=== PATIENT | male | born 1975 | race Caucasian/White ===

== ENCOUNTER 2019-12-19 09:39 | Emergency (ER) | payer OTHER, SELFPAY ==
--- NOTE | ~2019-12-19 | CT_ITS ---
EXAMINATION: CT abdomen pelvis w con DATE: 12/19/2019 10:33 INDICATION: Abdominal pain TECHNIQUE: Computed tomography (CT) of the abdomen and pelvis was performed . with 100 mL Omnipaque-3 50 intravenous contrast. Automated exposure control and iterative reconstruction technique were emplo yed. The dose-length product was 390.80 mGy-cm. COMPARISON: None FINDINGS: Mild dependent atelectasis in the bilateral lower lobes. Heart size is normal. No pericardial or pleu ral effusion. Liver, gallbladder, spleen, pancreas and bilateral adrenal glands are normal. Small charanjit unt of gas and fluid within a duodenal diverticulum arising from the second portion of the duodenum. There are regions of cortical scarring at the upper poles of both the left and right kidneys. There a re few scattered colonic diverticula predominantly along the descending and sigmoid colon. There is w all thickening and inflammatory stranding along short segment of the proximal sigmoid colon consisten t with diverticulitis. Small bowel and appendix are normal. No abscess or free intraperitoneal gas. B ladder and prostate are normal. No pathologically enlarged abdominal or pelvic lymphadenopathy. Mild bilateral hip osteoarthritis. IMPRESSION: 1. Radiographically uncomplicated sigmoid diverticulitis. Reviewed, dictated and finalized at location A.
--- NOTE | 2019-12-19 09:53 | ED_ITS ---
HPI - Abdominal Pain General Chief Complaint: Abdominal Pain Stated Complaint: abd pain Time Seen by Provider: 12/19/19 09:48 Source: RN notes reviewed History of Present Illness HPI narrative: Patient presents emergency department from home for abdominal pain. Patient states the pain began approximate 11 PM last night. Pain is located in left lower quadrant does not radiate. Described as sharp and stabbing. Denies any fevers or chills nausea vomiting diarrhea or any other symptoms. States he is taken no previous pain medication Related Data Allergies Allergy/AdvReac Type Severity Reaction Status Date / Time No Known Allergies Allergy Verified 12/19/19 09:44 Review of Systems Review of Systems: Narrative: Gen.: Denies fevers or chills ENT: Denies congestion Respiratory: Denies shortness of breath or cough CV: Denies chest pain or palpitations GI: See HPI a denies burning, urgency, frequency or hematuria Musculoskeletal: Denies back pain or muscle pain Neuro: Denies numbness, tingling, weakness or focal weakness Skin: Denies rash Except as documented, all other systems reviewed and negative [facility] Past Medical History Medical History (Updated 12/19/19 @ 09:53 by Nirav Oropeza DO) Patient denies significant medical history Social History Social History (Updated 12/19/19 @ 09:54 by Nirav Oropeza DO) Smoking packs per day: 1 Smoking cigarettes per day: 20.0
--- NOTE | 2019-12-19 09:54 | ED.ABDPAIN ---
HPI - Abdominal Pain General Chief Complaint: Abdominal Pain Stated Complaint: abd pain Time Seen by Provider: 12/19/19 09:48 Source: RN notes reviewed History of Present Illness HPI narrative: Patient presents emerged department from home for abdominal pain. Pain began last night is located left lower quadrant. Pain is described as sharp and stabbing does not radiate denies any fevers chills nausea vomiting diarrhea or any other symptoms states he is taken no previous pain medication Related Data Allergies Allergy/AdvReac Type Severity Reaction Status Date / Time No Known Allergies Allergy Verified 12/19/19 09:44 Review of Systems Review of Systems: Narrative: Gen.: Denies fevers or chills ENT: Denies congestion Respiratory: Denies shortness of breath or cough CV: Denies chest pain or palpitations GI: See HPI denies burning, urgency, frequency or hematuria Musculoskeletal: Denies back pain or muscle pain Neuro: Denies numbness, tingling, weakness or focal weakness Skin: Denies rash Except as documented, all other systems reviewed and negative [facility] Past Medical History Medical History (Updated 12/19/19 @ 11:41 by Nirav Oropeza DO) Patient denies significant medical history Social History Social History (Updated 12/19/19 @ 09:54 by Nirav Oropeza DO) Smoking packs per day: 1 Smoking cigarettes per day: 20.0 Exam Narrative: Exam Narrative: APPEARANCE: No acute distress, nontoxic, resting in bed HEENT: Normocephalic, atraumatic, OMM RESPIRATORY: No respiratory distress, clear to auscultation bilaterally with no rhonchi wheezing or rales CARDIOVASCULAR: RRR s murmur ABDOMINAL: Soft, nondistended, tender palpation left lower quadrant, no tenderness in right lower quadrant, right upper quadrant left upper quadrant, no rebound or guarding MUSCULOSKELETAl: Moves all extremities. No clubbing, cyanosis or edema. NEURO: Awake and alert. Following commands, speech normal, no focal deficits SKIN:: Warm, dry. Normal Color PSYCHIATRIC: Normal affect/mood Course Course Emergency Course: Patient states that they are feeling much better at this time. States abdominal pain has improved. Repeat abdominal exam shows the patient's abdomen to be soft with no surgical abdomen present. Discussed with patient results of workup and diagnosis. Discussed need for follow-up with primary care physician, reasons to return to the emergency department in proper use of medication. Patient understands and agrees to current treatment plan Vital Signs Vital signs: Vital Signs Temperature 98.7 F 12/19/19 09:55 Pulse Rate 64 12/19/19 09:55 Respiratory Rate 16 12/19/19 09:55 Blood Pressure 170/92 H 12/19/19 09:55 Pulse Oximetry 100 12/19/19 09:55 Temperature 98.7 F 12/19/19 09:55 Pulse Rate 64 12/19/19 09:55 Respiratory Rate 16 12/19/19 09:55 Blood Pressure 170/92 H 12/19/19 09:55 Pulse Oximetry 100 12/19/19 09:55 MDM - Abdominal Pain MDM Narrative Medical decision making narrative: Patient's abdomen is soft without significant pain or signs of surgical abdomen on serial exams. Lab and x-ray evaluations are reviewed and patient is felt to be a reasonable candidate for outpatient management. Patient was instructed as to limitations of x-ray and laboratory evaluation and encouraged to return to ED or primary physician for repeat exam in 12 hours if continued or worsening pain Lab Data Result diagrams: 12/19/19 09:55 12/19/19 10:27 Labs: Lab Results 12/19/19 12/19/19 12/19/19 Range/Units 09:55 09:55 09:55 WBC 18.7 H (4.5-10.0) K/mm3 RBC 5.28 (4.6-6.20) M/mm3 Hgb 16.4 (14.0-18.0) g/dL Hct 47.6 (42.0-52.0) % MCV 90.2 (80-100) fl MCH 31.1 (26-34) pg MCHC 34.5 (32-36) g/dl RDW 12.7 (11.5-14.5) % Plt Count 318 (150-375) k/mm3 MPV 8.9 (7.4-10.4) fl Immature Gran % (Auto) 0.4 (0-0.5) % Neut % (Auto) 74.4 H
[2019-12-19 09:55] VITALS: BP 170/92; PULSE 64; RESP 16; TEMP 37.1; O2SAT 100
[2019-12-19 10:03] LABS: Basophils Absolute Auto 0.1 K/mm3 (0.0-0.1); Basophils Percent Auto 0.3 % (0.2-1.2); Eosinophils Absolute Auto 0.2 K/mm3 (0-0.3); Hematocrit 47.6 % (42.0-52.0); Hemoglobin 16.4 g/dL (14.0-18.0); Immature Granulocyte Absolute 0.08 K/mm3 (0.00-0.031); Immature Granulocyte Percent A 0.4 % (0-0.5); Lymphocytes Absolute Auto 3.23 K/mm3 (0.9-3.2); Lymphocytes Percent Auto 17.3 % (18.3-44.2); Mean Corpuscular HGB Conc 34.5 g/dl (32-36); Mean Corpuscular Hemoglobin 31.1 pg (26-34); Mean Corpuscular Volume 90.2 fl (80-100); Mean Platelet Volume 8.9 fl (7.4-10.4); Monocytes Absolute Auto 1.2 K/mm3 (0.1-0.6); Monocytes Percent Auto 6.6 % (2.6-8.5); Neutrophils Absolute Auto 13.9 K/mm3 (1.3-6.7); Neutrophils Percent Auto 74.4 % (45.5-73.1); Platelet Count Result 318 k/mm3 (150-375); Red Blood Count 5.28 M/mm3 (4.6-6.20); Red Cell Distribution Width 12.7 % (11.5-14.5); White Blood Count 18.7 K/mm3 (4.5-10.0)
[2019-12-19] MEDS: SODIUM CHLORIDE 0.9% IV 1,000 ML 999 ML IV CONT (10:03)
[2019-12-19] MEDS: KETOROLAC 30 MG/ML VIAL (*BKC) IV PUSH (10:03)
[2019-12-19 10:05] LABS: Add Urine Microscopic? NO; Appearance Urine Clear (Clear); Bilirubin Urine Negative (Negative); Blood Urine Negative (Negative); Color Urine Yellow (Yellow); Glucose Urine UA Negative (Negative); Ketones Urine Negative (Negative); Leukocyte Esterase Ur Negative LEU/UL (Negative); Nitrate Urine Negative (Negative); Protein Urine Negative (Negative); Specific Grav Ur 1.018 (1.001-1.035); Urobilinogen Urine Negative mg/dL (<2.0)
[2019-12-19 10:19] LABS: Lipase 141 U/L (23-300)
[2019-12-19 10:28] LABS: Alanine Aminotransferase 23 U/L (4-50); Albumin Level 4.5 g/dL (3.5-5.1); Alkaline Phosphatase 104 U/L (38-126); Aspartate Amino Transferase 30 U/L (17-59); Bilirubin,Total 0.6 mg/dL (0.2-1.3); Blood Urea Nitrogen 11 mg/dL (9-20); Calcium 9.2 mg/dL (8.4-10.2); Carbon Dioxide 21 mmol/L (22-30); Chloride 108 mmol/L (98-107); Estimated CRCL calculation 90 ml/min; Estimated Glomerular Filt Rate > 60; Glucose 126 mg/dL (75-110); Potassium 4.2 mmol/L (3.4-5.0); Sodium 135 mmol/L (137-145)
[2019-12-19 10:28] LABS: Estimated CRCL calculation 113 ml/min; Estimated Glomerular Filt Rate > 60
[2019-12-19 11:33] LABS: Lactic Acid Reflex < 0.5 mmol/L (0.7-2.1)
[2019-12-19] MEDS: AMOXICILLIN/CLAVULANATE K 875-125 MG TAB 1 TABLET PO (11:51)
[2019-12-19 11:52] VITALS: BP 144/98; PULSE 71; RESP 16; O2SAT 98
== END 2019-12-19 12:00 | disposition home or self-care (01) ==
PROVIDERS: Emergency Provider Emergency Medicine; PCP Internal Medicine Gastroenterology
DX: K57.32 Diverticulitis of large intestine without perforation or abscess without bleeding (principal); F17.210 Nicotine dependence, cigarettes, uncomplicated
CPT/HCPCS: 36415; 74177; 80053; 81003; 83605; 83690; 85025; 96361; 96374; 99284; A9270; J1885; J7030; Q9967

== ENCOUNTER 2020-01-04 09:19 | Emergency (ER) | payer OTHER, SELFPAY ==
[2020-01-04] VITALS (36 sets, daily range): BP systolic 134–171; BP diastolic 91–106; PULSE 77; RESP 18; TEMP 36.4; O2SAT 96–100
--- NOTE | ~2020-01-04 | CT_ITS ---
EXAMINATION: CT abdomen pelvis w con EXAM DATE: 01/04/2020 11:30 INDICATION: Rectal pain. Hematochezia. TECHNIQUE: Spiral CT of the abdomen and pelvis was performed following intravenous injection of 100 m L Omnipaque 350. Axial, coronal and sagittal images were reviewed. The dose-length product (DLP) fo r this examination was 478.81 mGy-cm. The exposure was tailored according to patient size (auto mA e xposure control), and iterative reconstruction (ASIR) was used as additional dose reduction technique . Comparison is made to prior examination from 12/19/2019. FINDINGS: The liver, spleen, adrenal glands and pancreas are unremarkable. Gallbladder is unremarkab le. No biliary obstruction. Portal and splenic veins are patent. Kidneys enhance symmetrically. T here is no hydronephrosis. Small regions of bilateral renal cortical scarring. The prostate is unrem arkable. The bladder is unremarkable. There is no retroperitoneal or pelvic lymphadenopathy. Ther e is mild scattered arteriosclerotic disease. The appendix is normal. The stomach and small bowel are unremarkable. Mild diffuse sigmoid wall thi ckening, could be edema, mild colitis. Previous exam had acute diverticulitis at the descending/sigm oid colonic junction which has essentially resolved. No free intraperitoneal gas. The heart is nor mal in size. There are no pericardial or pleural effusions. The lung bases are unremarkable. The b ones are unremarkable. IMPRESSION: 1. Suspect mild sigmoid colonic wall thickening, edema, could be mild colitis. 2. Essentially resolved recent episode of acute diverticulitis. Reviewed, dictated and finalized at location B.
[2020-01-04] MEDS: SODIUM CHLORIDE 0.9% IV 1,000 ML 999 ML IV CONT (10:30)
[2020-01-04 10:39] LABS: Basophils Absolute Auto 0.1 K/mm3 (0.0-0.1); Basophils Percent Auto 0.7 % (0.2-1.2); Eosinophils Absolute Auto 0.3 K/mm3 (0-0.3); Hemoglobin 16.1 g/dL (14.0-18.0); Immature Granulocyte Absolute 0.08 K/mm3 (0.00-0.031); Immature Granulocyte Percent A 0.6 % (0-0.5); Lymphocytes Percent Auto 28.3 % (18.3-44.2); Mean Corpuscular HGB Conc 34.3 g/dl (32-36); Mean Corpuscular Hemoglobin 31.1 pg (26-34); Mean Corpuscular Volume 90.9 fl (80-100); Mean Platelet Volume 8.8 fl (7.4-10.4); Neutrophils Absolute Auto 7.7 K/mm3 (1.3-6.7); Neutrophils Percent Auto 60.4 % (45.5-73.1); Platelet Count Result 361 k/mm3 (150-375); Red Blood Count 5.17 M/mm3 (4.6-6.20); Red Cell Distribution Width 12.8 % (11.5-14.5); White Blood Count 12.7 K/mm3 (4.5-10.0)
[2020-01-04 10:49] LABS: Alanine Aminotransferase 38 U/L (4-50); Albumin Level 4.3 g/dL (3.5-5.1); Alkaline Phosphatase 102 U/L (38-126); Aspartate Amino Transferase 30 U/L (17-59); Bilirubin,Total 0.3 mg/dL (0.2-1.3); Blood Urea Nitrogen 11 mg/dL (9-20); Calcium 9.1 mg/dL (8.4-10.2); Carbon Dioxide 25 mmol/L (22-30); Chloride 106 mmol/L (98-107); Estimated CRCL calculation 93 ml/min; Estimated Glomerular Filt Rate > 60; Glucose 102 mg/dL (75-110); Lipase 172 U/L (23-300); Potassium 4.4 mmol/L (3.4-5.0); Sodium 136 mmol/L (137-145)
[2020-01-04 10:57] LABS: Add Urine Microscopic? NO; Appearance Urine Clear (Clear); Bilirubin Urine Negative (Negative); Blood Urine Negative (Negative); Color Urine Colorless (Yellow); Glucose Urine UA Negative (Negative); Ketones Urine Negative (Negative); Leukocyte Esterase Ur Negative LEU/UL (Negative); Nitrate Urine Negative (Negative); Protein Urine Negative (Negative); Specific Grav Ur 1.009 (1.001-1.035); Urobilinogen Urine Negative mg/dL (<2.0)
--- NOTE | 2020-01-04 12:15 | ED.GENADULT ---
HPI - General Adult General Chief complaint: GI Bleed Stated complaint: Blood in stool Time Seen by Provider: 01/04/20 09:25 Source: patient Mode of arrival: ambulatory Limitations: no limitations History of Present Illness HPI narrative: Patient is a 44-year-old male who presents to emergency department for evaluation of rectal bleeding for the last 3 days noting bright red blood with pain of the rectum with bowel movements. Patient just finished his medications for diverticulitis today. Patient has been followed by gastroenterology and is scheduled for colonoscopy. Patient denies any fever chills nausea vomiting. Patient denies anticoagulant use. Patient presents per private vehicle in no distress Related Data Allergies Allergy/AdvReac Type Severity Reaction Status Date / Time No Known Allergies Allergy Verified 12/25/19 11:03 Review of Systems Review of Systems: All systems reviewed & are unremarkable except as noted in HPI and below PMFSH Past Medical History Medical History Lower abdominal pain Patient denies significant medical history Social History Social History Smoking packs per day: 1 Smoking cigarettes per day: 20.0 Gender identity (if verbalized by the patient): Male Exam Narrative: Exam Narrative: GENERAL: Well-appearing, well-nourished, and in no acute distress. HEAD: Normocephalic, atraumatic. EYES: PERRLA and EOMI. ENT: Nares clear, no rhinorrhea or epistaxis. Mucous membranes moist. CHEST: Clear to auscultation. No respiratory distress. No wheezes rales or rhonchi HEART: Regular rate and rhythm. No murmur heard. Normal peripheral pulses. ABDOMEN: Soft, nontender, nondistended RECTAL: Normal rectal exam aside for tenderness of the rectum with some slight redness of the anoderm EXTREMITIES: Normal range of motion. No edema. SKIN: Warm, dry, no rash. NEURO: No focal deficits. Alert and oriented x3. PSYCH: Normal mood and affect. Course Course Emergency Course: Patient in the room in no distress feels comfortable to go home provided with reasons to return aware of case findings treatment plan and diagnosis agreeing to treatment plan Consultations Consultation #1: Discussed case with cut and print machine operator who recommends starting the patient on Flagyl for a week with follow-up in clinic and provided with reasons to return and feels patient is appropriate to follow-up on an outpatient basis Date: 01/04/20 Time: 13:05 Vital Signs Vital signs: Vital Signs Temperature 97.6 F 01/04/20 09:24 Pulse Rate 77 01/04/20 09:24 Respiratory Rate 18 01/04/20 09:24 Blood Pressure 171/102 H 01/04/20 09:24 Pulse Oximetry 100 01/04/20 09:24 Temperature 97.6 F 01/04/20 09:24 Pulse Rate 77 01/04/20 09:24 Respiratory Rate 18 01/04/20 09:24 Blood Pressure 154/93 H 01/04/20 12:01 Pulse Oximetry 99 01/04/20 12:01 Medical Decision Making MDM Narrative Medical decision making narrative: Patient in the room at this time in no distress aware of case findings treatment plan and diagnosis discussion with GI and recommendations of GI patient feels comfortable with going home patient was hydrated given medications in the emergency department with improvement patient without high risk changes in the blood work or imaging. Patient will be treated for colitis as recommended by GI provided with reasons to return Vital Signs Vital Signs: Vital Signs Temperature 97.6 F 01/04/20 09:24 Pulse Rate 77 01/04/20 09:24 Respiratory Rate 18 01/04/20 09:24 Blood Pressure 171/102 H 01/04/20 09:24 Pulse Oximetry 100 01/04/20 09:24 Temperature 97.6 F 01/04/20 09:24 Pulse Rate 77 01/04/20 09:24 Respiratory Rate 18 01/04/20 09:24 Blood Pressure 154/93 H 01/04/20 12:01 Pulse Oximetry 99 01/04/20 12:01 Lab Data Result diagrams: 01/04/20 10:28
== END 2020-01-04 13:34 | disposition home or self-care (01) ==
PROVIDERS: Emergency Medicine Emergency Medical Services; Emergency Provider Emergency Medicine; PCP Internal Medicine Gastroenterology
DX: K52.9 Noninfective gastroenteritis and colitis, unspecified (principal); K62.5 Hemorrhage of anus and rectum; F17.210 Nicotine dependence, cigarettes, uncomplicated
CPT/HCPCS: 36415; 74177; 80053; 81003; 83690; 85025; 96361; 96365; 99284; J0131; J7030; Q9967

== ENCOUNTER 2021-12-30 11:34 | Emergency (ER) | payer OTHER, SELFPAY ==
[2021-12-30 11:35] VITALS: BP 223/105; PULSE 64; RESP 18; TEMP 36.6; O2SAT 96
--- NOTE | 2021-12-30 11:51 | ED.DENTAL ---
HPI - Dental/Oral General Chief complaint: Dental/Oral Stated complaint: dental pain Time Seen by Provider: 12/30/21 11:43 History of Present Illness HPI Narrative: 46-year-old male presents to the emergency room for evaluation of dental pain to his left lower molar. Patient states that he has a fractured tooth that is chronic, and is been experiencing pain surrounding the tooth that radiates into his jaw. Denies fever. Sensitive to heat and cold. Related Data Allergies Allergy/AdvReac Type Severity Reaction Status Date / Time No Known Allergies Allergy Verified 12/30/21 11:40 Review of Systems Review of Systems: CONSTITUTIONAL: Denies fever, chills, or sweats. EYES: Denies visual changes, redness, or discharge. ENT: Reports dental pain CARDIOVASCULAR: Denies chest pain, palpitations, or edema. RESPIRATORY: Denies cough or dyspnea. GASTROINTESTINAL: Denies abdominal pain, nausea, vomiting, or diarrhea. GENITOURINARY: Denies dysuria or hematuria. SKIN: Denies rash or itching. MUSCULOSKELETAL: Denies back pain, joint pain, or myalgia. NEUROLOGIC: Denies headache, numbness, dizziness, or weakness. PSYCHIATRIC: Denies anxiety or depression. PMFSH Past Medical History Medical History Lower abdominal pain Patient denies significant medical history Social History Social History Smoking packs per day: 1 Smoking cigarettes per day: 20.0 Gender identity (if verbalized by the patient): Male Exam Narrative: GENERAL: Well-appearing, well-nourished, and in no acute distress. HEAD: Normocephalic, atraumatic. EYES: PERRLA and EOMI. ENT: Widespread periodontal disease multiple fractured teeth, multiple caries, tenderness to the left lower molar. No perimandibular tenderness NECK: Supple. No adenopathy or masses. No carotid bruits or JVD CHEST: Clear to auscultation. No respiratory distress. No wheezes rales or rhonchi HEART: Regular rate and rhythm. No murmur heard. Normal peripheral pulses. EXTREMITIES: Normal range of motion. No edema. NEURO: No focal deficits. Alert and oriented x3. PSYCH: Normal mood and affect. Course Vital Signs Vital signs: Vital Signs Temperature 36.6 C 12/30/21 11:35 Pulse Rate 64 12/30/21 11:35 Respiratory Rate 18 12/30/21 11:35 Blood Pressure 223/105 H 12/30/21 11:35 Pulse Oximetry 96 12/30/21 11:35 Oxygen Delivery Room Air 12/30/21 11:35 Temperature 36.6 C 12/30/21 11:35 Pulse Rate 59 L 12/30/21 12:55 Respiratory Rate 18 12/30/21 12:55 Blood Pressure 194/98 H 12/30/21 12:55 Pulse Oximetry 99 12/30/21 12:55 Oxygen Delivery Room Air 12/30/21 11:35 Discharge Plan Discharge Clinical Impression: Toothache Patient Disposition: Home, Self-Care Condition: Stable Instructions: Antibiotic Form, Toothache (ED) Prescriptions: New amoxicillin-pot clavulanate 875-125 mg tablet 1 tablet PO Q12H 7 Days Qty: 14 0RF No Action amoxicillin-pot clavulanate [Augmentin] 875-125 mg tablet 1 tablet PO Q12H Qty: 20 0RF ibuprofen [IBU] 600 mg tablet 600 mg PO Q6H PRN (Reason: pain) Qty: 20 0RF famotidine [Pepcid] 20 mg tablet 20 mg PO BID Qty: 14 0RF metronidazole [Flagyl] 500 mg tablet 500 mg PO Q8H 7 Days Qty: 21 0RF Follow-up/Referrals: Deangelo,Angella Allen MD [Primary Care Provider] - Stand Alone Forms: Work/School Release IP Time of Disposition: 12:50
[2021-12-30] MEDS: LIDOCAINE/EPINEPHRINE 0.5%/1:200,000 50 ML VIAL (12:49)
[2021-12-30 12:55] VITALS: BP 194/98; PULSE 59; RESP 18; O2SAT 99
== END 2021-12-30 12:57 | disposition home or self-care (01) ==
PROVIDERS: Emergency Provider Nurse Practitioner Family; PCP Internal Medicine Gastroenterology
DX: K08.89 Other specified disorders of teeth and supporting structures (principal); F17.210 Nicotine dependence, cigarettes, uncomplicated
CPT/HCPCS: 99283